=== PATIENT | male | born 2000 | race Caucasian/White ===

== ENCOUNTER 2024-08-11 17:29 | Inpatient (IN) | payer OTHER ==
[~2024-08-11] VITALS: Ht 177.8 cm; Wt 97.6 kg
[2024-08-11 18:18] LABS: HEMATOCRIT 43.4 % (42.0-52.0); HEMOGLOBIN 15.5 g/dl (13.5-17.5); MEAN CORPUSCULAR HEMOGLOBIN 29.4 pg (27.0-33.0); MEAN CORPUSCULAR HGB CONC 35.7 g/dl (32.0-36.5); MEAN CORPUSCULAR VOLUME 82.2 fl (80.0-96.0); PLATELET COUNT, AUTOMATED 247 10^3/uL (150-450); RED BLOOD COUNT 5.28 10^6/uL (4.30-6.10); WHITE BLOOD COUNT 7.1 10^3/uL (4.0-10.0)
[2024-08-11 18:31] LABS: AMPHETAMINES LEVEL URINE NEGATIVE (NEGATIVE); BARBITURATES URINE NEGATIVE (NEGATIVE); BENZODIAZEPINES URINE NEGATIVE (NEGATIVE); COCAINE METABOLITE URINE NEGATIVE (NEGATIVE); METHADONE URINE NEGATIVE (NEGATIVE); OPIATES URINE NEGATIVE (NEGATIVE); PHENCYCLIDINE URINE NEGATIVE (NEGATIVE)
[2024-08-11 18:32] LABS: CANNABINOIDS URINE NEGATIVE (NEGATIVE)
[2024-08-11 18:40] LABS: ETHYL ALCOHOL (ETHANOL) < 0.003 % (0.000-0.010)
[2024-08-11 18:41] LABS: SALICYLATE LEVEL < 3.0 MG/DL (<30)
[2024-08-11 18:42] LABS: ALBUMIN 4.5 G/DL (3.2-5.2); ALKALINE PHOSPHATASE 46 U/L (40-129); ALT/SGPT 30 U/L (7.0-40); AST/SGOT 22 U/L (<34); BILIRUBIN,DIRECT 0.3 MG/DL (<0.4); BILIRUBIN,TOTAL 0.7 MG/DL (0.3-1.2); BLOOD UREA NITROGEN 16 MG/DL (9-23); CALCIUM LEVEL 9.8 MG/DL (8.5-10.1); CARBON DIOXIDE LEVEL 25 MMOL/L (20-31); CHLORIDE LEVEL 108 MMOL/L (98-107); CREATININE FOR GFR 1.03 MG/DL (0.70-1.30); GLOMERULAR FILTRATION RATE > 90.0 (>60); GLUCOSE, FASTING 116 MG/DL (60-100); SODIUM LEVEL 145 MMOL/L (136-145)
[2024-08-11 18:44] LABS: THYROID STIMULATING HORMONE 1.352 uIU/ML (0.55-4.78)
[2024-08-12] MEDS ORDERED: ACETAMINOPHEN 325 MG TAB PO PRN (08:10)
[2024-08-12] MEDS ORDERED: MOM 30ML SUSPENSION UDC PO PRN (08:10)
[2024-08-12] MEDS ORDERED: traZODone 50 MG TAB PO PRN (08:10)
[2024-08-12] MEDS ORDERED: MAALOX 30 ML SUSP *UDC PO PRN (08:10)
[2024-08-12] MEDS ORDERED: diphenhydrAMINE 25MG CAP PO PRN (08:10)
[2024-08-12] MEDS ORDERED: IBUPROFEN 400MG TAB PO PRN (08:10)
[2024-08-12] MEDS ORDERED: HOME MED LIST COMPLETE! XX SCH (08:15)
[2024-08-12 10:40] VITALS: BP 131/77; TEMP 98.2; O2SAT 99
[2024-08-12 16:17] VITALS: BP 129/64; TEMP 97.4; O2SAT 99
[2024-08-13 07:00] VITALS: BP 117/75; TEMP 97.4; O2SAT 97
[2024-08-13 15:58] VITALS: BP 126/73; TEMP 97.2; O2SAT 98
[2024-08-14 07:03] VITALS: BP 124/71; TEMP 98; O2SAT 99
[2024-08-14] MEDS: SERTRALINE HCL 50 MG TAB PO SCH (09:21)
[2024-08-14 17:41] VITALS: BP 136/66; TEMP 98.2; O2SAT 98
[2024-08-15 06:37] VITALS: BP 128/73; TEMP 97.2; O2SAT 98
[2024-08-15] MEDS ORDERED: SERT50TA29 PO (08:28)
== END 2024-08-15 12:32 | disposition home or self-care (01) | DRG 881 ==
LOC: M ED 17:29 → M ED INP 08-12 08:09 → M PSY 08-12 10:48
PROVIDERS: ADMIT Student in an Organized Health Care Education/Training Program; ATTEND Student in an Organized Health Care Education/Training Program
DX: F32.9 Major depressive disorder, single episode, unspecified (principal); R45.851 Suicidal ideations; F43.10 Post-traumatic stress disorder, unspecified